=== PATIENT | female | born 1990 | race Caucasian/White ===

== ENCOUNTER 2023-12-11 14:53 | Emergency (ER) | payer BC ==
[~2023-12-11] VITALS: Ht 152.4 cm; Wt 49.9 kg
[2023-12-11] MEDS ORDERED: ONDANSETRON HCL/PF 4 MG/2 ML VIAL ONE (15:51)
[2023-12-11] MEDS ORDERED: MECLIZINE HCL 25 MG TABLET ONE (15:51)
[2023-12-11] MEDS: IV NS 0.9% 1,000 ML BAG IV ONE (16:08)
[2023-12-11] MEDS: ONDANSETRON HCL/PF 4 MG/2 ML VIAL IVP ONE (16:09)
[2023-12-11] MEDS: MECLIZINE HCL 12.5 MG TABLET PO ONE (16:10)
[2023-12-11 16:16] LABS: BASOPHILS % (AUTO) 0.2 % (0.0-2.0); EOSINOPHILS # (AUTO) 0.1 K/uL (0.0-0.7); EOSINOPHILS % (AUTO) 0.9 % (0.0-6.0); HEMATOCRIT 41 % (33-45); HEMOGLOBIN 14.4 g/dL (11.5-14.8); LYMPHOCYTES # (AUTO) 1.4 K/uL (0.8-4.8); LYMPHOCYTES % (AUTO) 17.1 % (20.0-44.0); MEAN CORPUSCULAR HEMOGLOBIN 32 PG (26.0-33.0); MEAN CORPUSCULAR HGB CONC 35 g/dl (31.0-36.0); MEAN CORPUSCULAR VOLUME 93 fL (82-100); MONOCYTES # (AUTO) 0.4 K/uL (0.1-1.30); MONOCYTES % (AUTO) 4.9 % (2.0-12.0); NEUTROPHILS # (AUTO) 6.5 K/uL (1.8-8.9); NEUTROPHILS % (AUTO) 76.9 % (43.0-81.0); PLATELET COUNT (AUTO) 183 K/uL (150-450); RED BLOOD CELL COUNT(AUTO) 4.45 MIL/uL (4.0-5.2); RED CELL DISTRIBUTION WIDTH 12.7 % (11.5-15.0); WHITE BLOOD COUNT (AUTO) 8.4 K/uL (4.3-11.0)
[2023-12-11 16:36] LABS: CALCIUM, SERUM 9.4 mg/dL (8.5-10.1); POTASSIUM 3.8 mmol/L (3.5-5.1)
[2023-12-11] MEDS ORDERED: diphenhydrAMINE HCL 50 MG/ML VIAL ONE (17:14)
[2023-12-11] MEDS ORDERED: ACETAMINOPHEN ES 500 MG TABLET ONE (17:15)
[2023-12-11] MEDS ORDERED: PROCHLORPERAZINE EDISYLATE 10 MG/2 ML VIAL ONE (17:15)
[2023-12-11] MEDS: diphenhydrAMINE HCL 50 MG/ML VIAL IV ONE (17:23)
[2023-12-11] MEDS: PROCHLORPERAZINE EDISYLATE 10 MG/2 ML VIAL IVP ONE (17:24)
[2023-12-11] MEDS: ACETAMINOPHEN ES 500 MG TABLET PO ONE (17:25)
[2023-12-11] MEDS ORDERED: ONDA4TAB11 PO (18:44)
[2023-12-11 19:03] VITALS: BP 112/75; TEMP 98.1; O2SAT 100
== END 2023-12-11 19:04 | disposition home or self-care (01) ==
LOC: ER 14:56
DX: G43.909 Migraine, unspecified, not intractable, without status migrainosus (principal); R42 Dizziness and giddiness; R11.2 Nausea with vomiting, unspecified
CPT/HCPCS: 99285; 96374; 70450; 96375; 96361; 93005; 85025; 80048; 36415; J8597; J0780; J1200; J2405; J7030